=== PATIENT | female | born 1935 | race Caucasian/White ===

== ENCOUNTER → 2017-11-28 | Outpatient (CLI) | payer MEDICARE, OTHER ==
[2017-11-28 18:47] LABS: PLATELET COUNT, AUTOMATED 280 10^3/uL (150-450)
[2017-11-28 18:50] LABS: INR 0.94; PROTHROMBIN TIME 12.7 SECONDS (12.4-14.5)
[2017-11-28 18:51] LABS: PARTIAL THROMBOPLASTIN TIME 41.7 SECONDS (26.8-37.9)
== END ==
LOC: M SMT 15:28
DX: R91.1 Solitary pulmonary nodule (principal)
CPT/HCPCS: 85049

== ENCOUNTER → 2017-12-19 | Outpatient (CLI) | payer MEDICARE, OTHER ==
[~2017-12-19] MED LIST: LIDOCAINE 1% MDV 20ML VIAL As Ordered
== END ==
LOC: M RADPRO 08:16
DX: C34.31 Malignant neoplasm of lower lobe, right bronchus or lung (principal)
CPT/HCPCS: 32405